=== PATIENT | male | born 1955 | race Caucasian/White ===

== ENCOUNTER → 2016-12-28 12:27 | Outpatient (CLI) | payer BC | END | disposition home or self-care (01) | LOC: D.NM 12:27 | DX: R93.2 Abnormal findings on diagnostic imaging of liver and biliary tract (principal); K80.20 Calculus of gallbladder without cholecystitis without obstruction ==

== ENCOUNTER → 2018-03-26 15:46 | Outpatient (CLI) | payer BC | END | disposition home or self-care (01) | LOC: D.LABREF 15:46 | DX: M17.11 Unilateral primary osteoarthritis, right knee (principal); Z11.8 Encounter for screening for other infectious and parasitic diseases ==